=== PATIENT | male | born 1970 | race Caucasian/White ===

== ENCOUNTER 2021-05-16 15:51 | Emergency (ER) | payer BC ==
--- NOTE | 2021-05-16 16:15 | EDM.PDOC ---
ED HPI GENERAL MEDICAL PROBLEM - General Chief Complaint: ENT Problem Stated Complaint: Forgien Body in Ear Time Seen by Provider: 05/16/21 16:06 Source of Information: Reports: Patient - History of Present Illness INITIAL COMMENTS - FREE TEXT/NARRATIVE: Jeremias is a 51 y/o male who comes to the ER with report of a piece of plastic in his left ear. He states that on Saturday evening his ear pods broke when he was removing them and he has had a piece in his left ear since. He as not been able to get it out and it has not worked it's way out on it's own. - Related Data Allergies Allergy/AdvReac Type Severity Reaction Status Date / Time Penicillins Allergy Cannot Verified 05/16/21 16:01 Remember Home Meds: Home Meds . [No Known Home Meds] 08/23/14 [History] Social & Family History - Living Situation & Occupation Living situation: Reports: , Alone Occupation: Employed Review of Systems - Review of Systems Review Of Systems: See Below Constitutional: Reports: No Symptoms Eyes: Reports: No Symptoms Ears: Reports: Other (Left ear foreign body) Nose: Reports: No Symptoms Mouth/Throat: Reports: No Symptoms Respiratory: Reports: No Symptoms Cardiovascular: Reports: No Symptoms GI/Abdominal: Reports: No Symptoms Genitourinary: Reports: No Symptoms Musculoskeletal: Reports: No Symptoms Skin: Reports: No Symptoms Neurological: Reports: No Symptoms Psychiatric: Reports: No Symptoms ED EXAM, GENERAL - Physical Exam Exam: See Below General Appearance: Alert, WD/WN, No Apparent Distress (Adult male) Eye Exam: Bilateral Eye: PERRL Ears: Normal External Exam, Hearing Grossly Normal, Other Ear Exam: Left Ear: TM normal, Foreign Body (Note small clear plastic tubing piece) Nose: Normal Inspection Throat/Mouth: Normal Voice Head: Atraumatic, Normocephalic Respiratory/Chest: No Respiratory Distress Cardiovascular: Regular Rate, Rhythm GI/Abdominal: Soft (Male) Exam: Deferred Rectal (Males) Exam: Deferred Back Exam: Other (Deferred) Extremities: Normal Inspection, Normal Range of Motion, Normal Capillary Refill Neurological: Alert, Oriented, CN II-XII Intact, Normal Cognition, Normal Gait Psychiatric: Normal Affect Skin Exam: Warm, Dry, Intact, Normal Color ED TRAUMA PROCEDURES - Foreign Body Removal Indication:: Left Ear Foreign Body Consent Obtained: Patient Performing Doctor:: Mita Pereira Anesthesia Type: None Findings:: Small piece of clear tubing noted in left ear canal. Alligator clamp used to grasp the object and removed easily from ear canal. Complications:: No Comments:: Patient tolerated well Course - Vital Signs Text/Narrative:: 1604 The patient was seen by the RO[facility] INSPECTOR. The foreign body was removed from the left ear canal. See Procedure note. The patient was given discharge instructions and left the ER in stable condition. Last Recorded V/S: Last Vital Signs Temp 36.4 C 05/16/21 15:55 Pulse 66 05/16/21 15:55 Resp 16 05/16/21 15:55 BP 133/84 05/16/21 15:55 Pulse Ox 100 05/16/21 15:55 Departure - Departure Time of Disposition: 16:19 Disposition: Home, Self-Care 01 Condition: Good Clinical Impression: Foreign body in ear Qualifiers: Encounter type: initial encounter Laterality: left Qualified Code(s): T16.2XXA - Foreign body in left ear, initial encounter - Discharge Information *PRESCRIPTION DRUG MONITORING PROGRAM REVIEWED*: Not Applicable *COPY OF PRESCRIPTION DRUG MONITORING REPORT IN PATIENT GUILLERMO: Not Applicable Instructions: Ear Foreign Body Referrals: PCP,None [Primary Care Provider] - Forms: ED Department Discharge Additional Instructions: -May note small amount fo blood or some irritation to the left ear canal. -Follow up with PCP ore return to the ER as needed for any concerns. Sepsis Event Note (ED) - Evaluation Sepsis Screening Result: No Definite Risk - Focused Exam Vital Signs: Vital Signs Temp Pulse Resp BP Pulse Ox 05/16/21 15:55 36.4 C 66 16 133/84 100 - Assessment/Plan Assessment:: 1)Left Ear Foreign Body with Removal Plan: As above
== END 2021-05-16 16:25 | disposition home or self-care (01) ==
LOC: LL.ED 15:51
DX: T16.2XXA Foreign body in left ear, initial encounter (principal); Z88.0 Allergy status to penicillin
CPT/HCPCS: 69200; 99282-25; 99283

== ENCOUNTER 2025-06-03 21:18 | Emergency (ER) | payer OTHER, BC ==
[2025-06-03 21:26] LABS: BASOPHILS ABSOLUTE AUTO 0.02 K/uL (0.00-0.20); BASOPHILS PERCENT AUTO 0.3 % (0.0-2.0); EOSINOPHILS ABSOLUTE AUTO 0.02 K/uL (0.00-0.50); EOSINOPHILS PERCENT AUTO 0.3 % (0.0-5.0); IMMATURE GRAN ABSOLUTE AUTO 0.01 10^3/uL (0.00-0.04); IMMATURE GRAN PERCENT AUTO 0.2 % (0.0-0.4); LYMPHOCYTES ABSOLUTE AUTO 1.07 K/uL (0.50-3.50); LYMPHOCYTES PERCENT AUTO 16.9 % (10.0-50.0); MONOCYTES ABSOLUTE AUTO 0.30 K/uL (0.00-1.00); MONOCYTES PERCENT AUTO 4.7 % (2.0-14.0); NEUTROPHILS ABSOLUTE AUTO 4.92 K/uL (1.40-7.00); NEUTROPHILS PERCENT AUTO 77.6 % (45.0-80.0); PLATELET COUNT,PLT 164 K/uL (150-350); RED BLOOD CELL COUNT 4.94 M/uL (4.33-5.41); RED CELL DISTRIBUTION WIDTH 12.0 % (11.2-14.1); WHITE BLOOD CELL COUNT,WBC 6.3 K/uL (4.0-10.2)
[2025-06-03 21:31] LABS: BLOOD UREA NITROGEN,BUN 21 mg/dL (7-18); CARBON DIOXIDE,CO2 22.7 mmol/L (21.0-32.0); CHLORIDE,CL 106 mmol/L (98-107); CREATININE 1.37 mg/dL (0.51-1.17); GLUCOSE RANDOM 125 mg/dL (70-99); POTASSIUM,K 3.5 mmol/L (3.5-5.1); SODIUM,NA 141 mmol/L (136-145)
[2025-06-03 21:34] LABS: ESTIMATED GFR 61 mL/min (>=60)
[2025-06-03] MEDS: Take Home: Acetaminophen/HYDROcodone 325-5 MG, 5 Tab Pack PO ONE (21:59)
== END 2025-06-03 22:30 | disposition home or self-care (01) ==
LOC: LL.ED 21:18
DX: S62.312A Displaced fracture of base of third metacarpal bone, right hand, initial encounter for closed fracture (principal); Z88.0 Allergy status to penicillin; Z79.899 Other long term (current) drug therapy; V49.40XA Driver injured in collision with unspecified motor vehicles in traffic accident, initial encounter; Y92.410 Unspecified street and highway as the place of occurrence of the external cause
CPT/HCPCS: 29125; 36415; 73130; 80048; 85025; 99284; A9270; 99283